=== PATIENT | female | born 1965 | race Caucasian/White ===

== ENCOUNTER 2018-10-12 16:21 | Emergency (ER) | payer OTHER ==
[2018-10-12 16:34] VITALS: BP 135/79; PULSE 65; O2SAT 99
--- NOTE | 2018-10-12 16:34 | ERPHSYRPT ---
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 tetanus unknown. no anticoag tx. no known allergies. pt was cutting an avocado and accidentally cut left thumb Timing/Duration: today Quality: painful (mild) Severity: mild Location: hands (left thumb) Possible Causes: other (accidentally cut with knife) Associated Symptoms: denies symptoms - Review of Systems Constitutional: No Symptoms Eyes: No Symptoms Ears, Nose, & Throat: No Symptoms Respiratory: No Symptoms Cardiac: No Symptoms Abdominal/Gastrointestinal: No Symptoms Genitourinary Symptoms: No Symptoms Musculoskeletal: No Symptoms Skin: Other (superficial lac left thumb) Neurological: No Symptoms Psychological: No Symptoms Endocrine: No Symptoms Hematologic/Lymphatic: No Symptoms Immunological/Allergic: No Symptoms All Other Systems: Reviewed and Negative - Past Medical History Pertinent Past Medical History: Yes Neurological History: No Pertinent History ENT History: No Pertinent History Cardiac History: No Pertinent History Respiratory History: No Pertinent History Endocrine Medical History: No Pertinent History Musculoskeletal History: No Pertinent History GI Medical History: No Pertinent History History: No Pertinent History Psycho-Social History: No Pertinent History Female Reproductive Disorders: No Pertinent History - Past Surgical History Neuro Surgical History: No Pertinent History Cardiac: No Pertinent History Respiratory: No Pertinent History Gastrointestinal: No Pertinent History Genitourinary: No Pertinent History Musculoskeletal: No Pertinent History Female Surgical History: No Pertinent History - Nursing Vital Signs Nursing Vital Signs: Initial Vital Signs Temperature 98 F 10/12/18 16:29 Pulse Rate 65 10/12/18 16:29 Respiratory Rate 16 10/12/18 16:29 Blood Pressure 135/79 10/12/18 16:29 O2 Sat by Pulse Oximetry 99 10/12/18 16:29 Pain Scale Pain Intensity 4 - Physical Exam General Appearance: no apparent distress, alert, anxiety Eye Exam: PERRL/EOMI, eyes nml inspection Ears, Nose, Throat Exam: normal ENT inspection, moist mucous membranes Neck Exam: normal inspection, non-tender, supple, full range of motion Respiratory Exam: normal breath sounds, lungs clear, airway intact, No chest tenderness, No respiratory distress, No accessory muscle use, No rhonchi, No wheezing, No stridor Cardiovascular Exam: regular rate/rhythm, normal peripheral pulses Gastrointestinal/Abdomen Exam: soft, No tenderness, No guarding, No rebound Pelvic Exam: not done Rectal Exam: not done Back Exam: normal inspection, normal range of motion, No CVA tenderness, No vertebral tenderness Extremity Exam: normal range of motion, pelvis stable, lacerations (1.5 superficial flap left thumb. 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 pressure dressing applied. 10/12/18 16:52 - Course Nursing assessment & vital signs reviewed: Yes - Progress Progress: improved Progress Note: 10/12/18 16:52 pt believes her tetanus status is utd. she is going to check at home and will obtain a tetanus injection within 10 days if out of date. she refuses now. Counseled pt/family regarding: diagnosis, need for follow-up - Departure Time of Disposition: 16:52 Departure Disposition: Home Clinical Impression: Thumb laceration Condition: Stable Critical Care Time: No Referrals: DORA FRAUSTO [Primary Care Provider] - Additional Instructions: keep pressure dressing in place for 36 hours. use ice pack to area 3 times daily for 3 days. after 36 hours, remove pressure dressing only leaving steristrips in place. once pressure dressing removed, may wash daily. do not scrub or rub area. blot dry or dry with hairdryer. if concerns about wound or dressing, return to ED of management. use tylenol and ibuprofen for pain
== END 2018-10-12 17:15 | disposition home or self-care (01) ==
LOC: ED 16:21
DX: S61.012A Laceration without foreign body of left thumb without damage to nail, initial encounter (principal); W26.0XXA Contact with knife, initial encounter; Y93.G3 Activity, cooking and baking; Y92.000 Kitchen of unspecified non-institutional (private) residence as the place of occurrence of the external cause
CPT/HCPCS: 12001; 99283

== ENCOUNTER 2020-08-08 16:57 | Emergency (ER) | payer BC ==
[2020-08-08 17:14] VITALS: O2SAT 100
[2020-08-08] MEDS ORDERED: TYLENOL 325 MG PO ONE (17:30)
[2020-08-08] MEDS ORDERED: XYLOCAINE 2% HCL 20 ML MDV IJ ONE (17:30)
--- NOTE | 2020-08-08 17:30 | ERPHSYRPT ---
- History of Present Illness Time Seen by Provider: 08/08/20 17:10 Source: patient Exam Limitations: no limitations Patient Subjective Stated Complaint: Pt states "I was rollerblading and I had a wobble in my left leg and then I went down and hit my chin and wrist." Triage Nursing Assessment: Pt presented alert and oriented X 3, skin pwd Pt ambulates with an upright steady gait,a ble to speak in clear full sentences, pt has pain in her right wrist and a laceration noted to her chin. Physician History: Patient is a 55-year-old female presents to our ED with pain to her right hand wrist and chin. Patient was rollerblading and fell. She was not wearing any headgear. She had wrist protection in place. Injury/fall occurred prior to arrival. Pain described as an ache that is well localized. No radiation. Pain worse with movement and palpation. Pain improved with rest. Patient denies BHT or LOC. No neck pain. Cervical spine cleared clinically. Patient has no pain along her spine. Patient was ambulatory after the injury. Patient's complaints are isolated to her right hand wrist and chin. She has an obvious laceration to her chin. Tetanus is up-to-date. Patient voices no other complaints or con cerns at this time. Occurred: just prior to arrival Method of Injury: fell Quality: constant Severity of Pain-Max: moderate Severity of Pain-Current: mild Extremities Pain Location: wrist: right, hand: right Modifying Factors: Improves With: movement Associated Symptoms: none Allergies/Adverse Reactions: No Known Drug Allergies Allergy (Verified 08/08/20 17:14) Home Medications: Dextroamphetamine/Amphetamine [Adderall Xr 15 mg Capsule] 1 cap PO DAILY 08/08/20 [History] Escitalopram Oxalate 10 mg [Lexapro 10 MG] 10 mg PO DAILY 08/08/20 [History] Hx Tetanus, Diphtheria Vaccination/Date Given: No Hx Influenza Vaccination/Date Given: Yes Hx Pneumococcal Vaccination/Date Given: No Immunizations Up to Date: Yes Travel Risk - International Travel Have you traveled outside of the country in past 3 weeks: No - Coronavirus Screening Are you exhibiting any of the following symptoms?: No Close contact with a COVID-19 positive Pt in past 14-21 Days: No - Review of Systems Constitutional: No Symptoms, No Fever, No Chills Eyes: No Symptoms Ears, Nose, & Throat: No Symptoms Respiratory: No Symptoms, No Cough, No Dyspnea Cardiac: No Symptoms, No Chest Pain, No Edema, No Syncope Abdominal/Gastrointestinal: No Symptoms, No Abdominal Pain, No Nausea, No Vomiting, No Diarrhea Genitourinary Symptoms: No Symptoms, No Dysuria Musculoskeletal: No Symptoms, No Back Pain, No Neck Pain Skin: No Symptoms, No Rash Neurological: No Symptoms, No Dizziness, No Focal Weakness, No Sensory Changes Psychological: No Symptoms Endocrine: No Symptoms Hematologic/Lymphatic: No Symptoms Immunological/Allergic: No Symptoms All Other Systems: Reviewed and Negative - Past Medical History Pertinent Past Medical History: Yes Neurological History: No Pertinent History ENT History: No Pertinent History Cardiac History: No Pertinent History Respiratory History: No Pertinent History Endocrine Medical History: No Pertinent History Musculoskeletal History: No Pertinent History GI Medical History: No Pertinent History History: No Pertinent History Psycho-Social History: No Pertinent History Female Reproductive Disorders: No Pertinent History Other Medical History: ADD - Past Surgical History Past Surgical History: Yes Neuro Surgical History: No Pertinent History Cardiac: No Pertinent History Respiratory: No Pertinent History Gastrointestinal: No Pertinent History Genitourinary: No Pertinent History Musculoskeletal: No Pertinent History Female Surgical History: No Pertinent History Other Surgical History: c section - Social History Smoking Status: Never smoker Exposure to second hand smoke: No Drug Use: none Patient Lives Alone: No - Female History Hx Now: No - Nursing Vital Signs Nursing Vital Signs: Initial Vital Signs Temperature 97.6 F 08/08/20 17:06 Pulse Rate 72 08/08/20 17:06 Respiratory Rate 20 08/08/20 17:06 Blood Pressure 95/61 08/08/20 17:06 O2 Sat by Pulse Oximetry 100 08/08/20 17:06 Pain Scale Pain Intensity 4 - Physical Exam General Appearance: no apparent distress, alert Eyes, Ears, Nose, Throat Exam: moist mucous membranes Neck Exam: non-tender, supple Cardiovascular/Respiratory Exam: chest non-tender, normal breath sounds, regular rate/rhythm, no respiratory distress Abdominal Exam: non-tender, No guarding Back Exam: normal inspection, No vertebral tenderness Shoulder Exam: normal inspection Wrist Exam: bone tenderness, limited ROM, pain, soft tissue tenderness, swelling Hand Exam: limited ROM, swelling Neuro/Tendon Exam: normal sensation, normal motor functions, normal tendon functions Mental Status Exam: alert, oriented x 3, cooperative Skin Exam: normal color, warm, dry SpO2 Interpretation: normal SpO2: 100 O2 Delivery: Room Air Procedures - Laceration/Wound Repair Jaw Wound Location: head (Injury to chin.) Wound's Depth, Shape: irregular, stellate, contused tissue Wound Explored: clean Irrigated: Yes Hibiclens Prep: Yes Anesthesia: 1% Lidocaine Volume Anesthetic (ccs): 3 Wound Debrided: Debridement necessary. Wound Repaired With: sutures Suture Size/Type: 6-0, nylon Number of Sutures: 5 Layer Closure?: No Sterile Dressing Applied?: Yes Splint Applied?: No Sling Applied?: No Progress: 08/08/20 20:42 Patient reassessed. She feels well. Patient tolerated procedure well. No complications. Topical antibiotic ointment as well as nonadhesive dressing with a bulky bandage applied to wound. Sugar tong splint applied to right upper extremity. Right upper extremity placed in a sling. Patient referred to orthopedic for follow-up. Patient to follow-up with her primary care doctor for further evaluation and treatment of her laceration. - Course Nursing assessment & vital signs reviewed: Yes - Radiology Exams Other X-ray Interpretation: Interpreted by me (X-ray of mandible no fracture or dislocation.) Wrist X-ray Interpretation: Interpreted by me (Distal radius fracture with intra- articular extension. Minimal dorsal angulation) Hand X-ray Interpretation: Interpreted by me (No hand fractures or dislocations.) Ordered Tests: Active Orders 24 hr Category Date Time Status HAND (MINIMUM 3 VIEWS) Stat Exams 08/08/20 17:25 Taken MANDIBLE (MINIMUM 4 VIEWS) Stat Exams 08/08/20 17:46 Taken WRIST (MIN 3 VIEWS) Stat Exams 08/08/20 17:25 Taken Medication Summary Discontinued Medications Generic Name Dose Route Start Last Admin Trade Name Freq PRN Reason Stop Dose Admin Acetaminophen 975 mg 08/08/20 17:30 08/08/20 17:51 Tylenol 325 Mg PO 08/08/20 17:31 975 mg STAT ONE Administration Acetaminophen Confirm 08/08/20 17:50 Tylenol 325 Mg Administered 08/08/20 17:51 Dose 975 mg .ROUTE .STK-MED ONE Bacitracin Zinc Confirm 08/08/20 20:19 Baciguent Packet Administered 08/08/20 20:20 Dose 1 gm .ROUTE .STK-MED ONE Lidocaine HCl 5 ml 08/08/20 17:30 08/08/20 17:52 Xylocaine 2% Hcl 20 Ml Mdv IJ 08/08/20 17:31 5 ml STAT ONE Administration Lidocaine HCl Confirm 08/08/20 17:50 Xylocaine 2% Hcl 20 Ml Mdv Administered 08/08/20 17:51 Dose 5 ml .ROUTE .STK-MED ONE Lidocaine HCl Confirm 08/08/20 19:00 Xylocaine 2% Hcl 20 Ml Mdv Administered 08/08/20 19:01 Dose 1 ml .ROUTE .STK-MED ONE - Progress Progress: improved Progress Note: 08/08/20 20:42 Patient reassessed. Pain improved. Patient requested only Tylenol. Right distal radius fracture observed on x-ray. Extremity neurovascular intact distally. We removed patient's finger ring. Involved right upper extremity placed in a splint and sling. Chin laceration repaired. See procedure note. Counseled pt/family regarding: lab results, diagnosis, need for follow-up, rad results - Departure Departure Disposition: Home Clinical Impression: Fall, Wrist fracture, closed, Chin laceration Condition: Stable Critical Care Time: No Referrals: DOCTOR,NO FAMILY [Primary Care Provider] - MIKHAIL NEELY MD [ACTIVE STAFF] - Instructions: Laceration Repair With Stitches (DC) Additional Instructions: Discharge/Care Plan SYDNEE PAYNE was seen on 08/08/20 in the Emergency Room. The patient was counseled regarding Diagnosis,Lab results, Imaging studies, need for follow up and when to return to the Emergency Room. Prescriptions given: Discharge Note I have spoken with the patient and/or caregivers. I have explained the patient's condition, diagnosis and treatment plan based on the information available to me at this time. I have answered the patient's and/or caregiver's questions and addressed any concerns. The patient and/or caregivers have as good understanding of the patient's diagnosis, condition and treatment plan as can be expected at this point. The vital signs have been stable. The patient's condition is stable and appropriate for discharge from the emergency department. The patient will pursue further outpatient evaluation with the primary care physician or other designated or consulting physician as outlined in the discharge instructions. The patient and/or caregivers are agreeable to this plan of care and follow-up instructions have been explained in detail. The patient and/or caregivers have received these instruction. The patient/and or caregivers are aware that any significant change in condition or worsening of symptoms should prompt an immediate return to this or the closest emergency department or call 911. Prescriptions: Cephalexin Mh 500 mg [Keflex 500 mg] 500 mg PO TID #21 capsule
[2020-08-08] MEDS ORDERED: XYLOCAINE 2% HCL 20 ML MDV ONE ×2 (17:50→19:00)
[2020-08-08] MEDS ORDERED: TYLENOL 325 MG ONE (17:50)
[2020-08-08 19:22] VITALS: BP 139/74; PULSE 62
[2020-08-08] MEDS ORDERED: BACIGUENT PACKET ONE (20:19)
--- NOTE | 2020-08-09 08:30 | XRAY ---
Indication: Pain following fall. Comparison: None 4 view mandible demonstrates a impacted left lower molar tooth orientated horizontally and mild degenerative changes throughout the cervical spine. No other bony, articular, or soft tissue abnormalities.
--- NOTE | 2020-08-09 08:32 | XRAY ---
Indication: Pain following fall. Comparison: None 3 view right hand demonstrates distal radius fracture reported separately and a 4th finger ring. No other bony, articular, or soft tissue abnormalities.
--- NOTE | 2020-08-09 08:32 | XRAY ---
Indication: Pain following fall. Comparison: None 3 view right wrist demonstrates nondisplaced comminuted fracture distal radius with intra-articular extension and soft tissue swelling. No other bony, articular, or soft tissue abnormalities.
== END 2020-08-08 21:12 | disposition home or self-care (01) ==
LOC: ED 16:57
DX: S52.501A Unspecified fracture of the lower end of right radius, initial encounter for closed fracture (principal); W01.0XXA Fall on same level from slipping, tripping and stumbling without subsequent striking against object, initial encounter; Y93.51 Activity, roller skating (inline) and skateboarding; Y92.89 Other specified places as the place of occurrence of the external cause
CPT/HCPCS: 12013; 29105; 70110; 73110; 73130; 96372; 99284; A9270-GY

== ENCOUNTER 2023-03-16 21:33 | Emergency (ER) | payer BC ==
--- NOTE | 2023-03-16 22:05 | ERPHSYRPT ---
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 Tetanus shot was in 2011. Minimal bleeding at the laceration site no numbness or tingling reported. Allergies/Adverse Reactions: No Known Drug Allergies Allergy (Verified 08/08/20 17:14) Home Medications: Dextroamphetamine/Amphetamine [Adderall Xr 15 mg Capsule] 1 cap PO DAILY 08/08/20 [History] Escitalopram Oxalate [Lexapro 10 MG] 10 mg PO DAILY 08/08/20 [History] Ibandronate Sodium [Boniva] 150 mg PO UD 03/16/23 [History] Hx Tetanus, Diphtheria Vaccination/Date Given: No Hx Influenza Vaccination/Date Given: Yes Hx Pneumococcal Vaccination/Date Given: No - Review of Systems Constitutional: No Symptoms Skin: Other (laceration of index finger) Neurological: No Symptoms - Past Medical History Pertinent Past Medical History: Yes Neurological History: No Pertinent History ENT History: No Pertinent History Cardiac History: No Pertinent History Respiratory History: No Pertinent History Endocrine Medical History: No Pertinent History Musculoskeletal History: No Pertinent History GI Medical History: No Pertinent History History: No Pertinent History Psycho-Social History: No Pertinent History Female Reproductive Disorders: No Pertinent History Other Medical History: ADD - Past Surgical History Past Surgical History: Yes Neuro Surgical History: No Pertinent History Cardiac: No Pertinent History Respiratory: No Pertinent History Gastrointestinal: No Pertinent History Genitourinary: No Pertinent History Musculoskeletal: No Pertinent History Female Surgical History: No Pertinent History Other Surgical History: c section - Social History Smoking Status: Never smoker Exposure to second hand smoke: No Drug Use: none Patient Lives Alone: No - Nursing Vital Signs Nursing Vital Signs: Initial Vital Signs Temperature 96.5 F 03/16/23 22:09 Pulse Rate 60 03/16/23 22:09 Respiratory Rate 18 03/16/23 22:09 Blood Pressure 150/70 03/16/23 22:09 O2 Sat by Pulse Oximetry 100 03/16/23 22:09 Pain Scale Pain Intensity 8 - Physical Exam General Appearance: no apparent distress Extremity Exam: lacerations (1.5cm curvilinear laceration of distal 2nd digit), No parasthesia Neurologic Exam: sensation nml, No motor deficits Procedures - Laceration/Wound Repair Left Distal Volar Finger Time of Procedure: 22:40 Wound Location: Left (distal 2nd digit) Wound Length (cm): 1.5 Wound's Depth, Shape: superficial Wound Explored: clean Irrigated: Yes Hibiclens Prep: Yes Anesthesia: 1% Lidocaine Volume Anesthetic (ccs): 6 Wound Debrided: minimal Wound Repaired With: sutures Suture Size/Type: 4-0, nylon Number of Sutures: 4 Layer Closure?: No Sterile Dressing Applied?: Yes Splint Applied?: No Sling Applied?: No - Course Nursing assessment & vital signs reviewed: Yes Ordered Tests: Medication Summary Discontinued Medications Generic Name Dose Route Start Last Admin Trade Name Freq PRN Reason Stop Dose Admin Bacitracin Zinc 0.9 each 03/16/23 22:47 Bacitracin Packet 1 Each Pckt TP 03/16/23 22:48 STAT ONE - Progress Progress: unchanged Progress Note: 03/16/23 22:52 laceration repair completed, patient tolerated well. F/U pcp 7-10 days for suture removal. Counseled pt/family regarding: need for follow-up Medical Desision Making - Diagnostic Testing Diagnostic test were ordered, analyzed, and reviewed by me: No - Risk of complications The pt has a mod risk of morbidity or mortality based on: Need for minor surgical intervention in patient with know risk factors - Departure Departure Disposition: Home Clinical Impression: Laceration of index finger of left hand without complication Condition: Good Critical Care Time: No Referrals: DONAVON STEWART NP [Primary Care Provider] - Follow up/PCP as directed Instructions: Laceration Repair With Stitches (DC)
[2023-03-16] MEDS ORDERED: BACIGUENT PACKET TP ONE (22:47)
[2023-03-16] MEDS ORDERED: BACIGUENT PACKET ONE (22:55)
[2023-03-16] MEDS ORDERED: Adacel Vial IM ONE ×2 (22:58→23:03)
[2023-03-16 23:15] VITALS: BP 125/83; PULSE 68; O2SAT 95
== END 2023-03-16 23:15 | disposition home or self-care (01) ==
LOC: ED 21:33
DX: S61.211A Laceration without foreign body of left index finger without damage to nail, initial encounter (principal); W29.8XXA Contact with other powered hand tools and household machinery, initial encounter; Z79.899 Other long term (current) drug therapy
CPT/HCPCS: 12001; 90471; 90715; 99282; A9270-GY